=== PATIENT | female | born 1965 | race Caucasian/White ===

== ENCOUNTER → 2018-03-28 | Day surgery (SDC) | payer BC | LOC: MSO 08:32 | DX: Z12.11 Encounter for screening for malignant neoplasm of colon (principal); I10 Essential (primary) hypertension | CPT/HCPCS: 00812; J2704; J7120 ==

== ENCOUNTER → 2021-02-06 | Outpatient (CLI) | payer BC | LOC: RAD 11:57 | DX: N39.0 Urinary tract infection, site not specified (principal); M54.9 Dorsalgia, unspecified; Z90.710 Acquired absence of both cervix and uterus | CPT/HCPCS: Q9967 ==

== ENCOUNTER → 2021-03-04 | Outpatient (CLI) | payer BC | LOC: RAD 06:50 | DX: M71.22 Synovial cyst of popliteal space [Baker], left knee (principal); M17.12 Unilateral primary osteoarthritis, left knee; S83.282A Other tear of lateral meniscus, current injury, left knee, initial encounter ==